=== PATIENT | female | born 1990 | race Caucasian/White ===

== ENCOUNTER 2018-07-01 17:28 | Emergency (ER) | payer BC ==
[~2018-07-01] VITALS: Ht 165.1 cm; Wt 65.8 kg
[2018-07-01 17:47] VITALS: BP_SYST 102
--- NOTE | 2018-07-01 19:34 | NUR ---
Patient to ER CHAIR for evaluation. Side rails up. Report given to THOM WATSON.
--- NOTE | 2018-07-01 20:04 | NUR ---
Pt AAOx4 presents to ED via wheelchair c/o 10/18 pain to L knee radiating to L hip x 2 days s/p "twisting knee" while attempting to get up from sitting on floor. Pt took ibuprofen with no relief. Skin pink dry and warm, breathing even and unlabored. NO other injuries/complaints per pt/noted. Will continue to monitor .
--- NOTE | 2018-07-01 20:06 | NUR ---
SEMAJ Ortiz at bedside examining patient.
--- NOTE | 2018-07-01 20:23 | NUR ---
Ice pack provided
[2018-07-01] MEDS ORDERED: HYDROcodone/ACETAMIN 5-325 MG TAB (NORCO/ VICODIN) PO ONE (20:45)
[2018-07-01 20:51] VITALS: BP_SYST 106
--- NOTE | 2018-07-01 20:51 | NUR ---
Patient given written and verbal discharge instructions and verbalizes understanding. ER MD Ortiz discussed with patient the results and treatment provided. Patient in stable condition. ID arm band removed. Rx of Ibuprofen, [place] given. Patient educated on pain management and to follow up with PMD. Pain Scale 0. Opportunity for questions provided and answered. Medication side effect fact sheet provided.
== END 2018-07-01 20:51 | disposition home or self-care (01) ==
LOC: SED 17:28
DX: S89.92XA Unspecified injury of left lower leg, initial encounter (principal); Z88.0 Allergy status to penicillin; X58.XXXA Exposure to other specified factors, initial encounter; Y93.89 Activity, other specified; Y92.89 Other specified places as the place of occurrence of the external cause; Y99.8 Other external cause status
CPT/HCPCS: 73564; 99283

== ENCOUNTER 2019-02-07 10:12 | Emergency (ER) | payer BC ==
[~2019-02-07] VITALS: Ht 165.1 cm; Wt 65.8 kg
[2019-02-07 10:12] VITALS: BP_SYST 117
--- NOTE | 2019-02-07 10:12 | NUR ---
BROUGHT BACK TO BED #2 AND TRIAGED. REPORT GIVEN TO [facility]
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
--- NOTE | 2019-02-07 10:53 | NUR ---
ER at bedside examining patient.
[2019-02-07] MEDS ORDERED: KETOROLAC TROMETHAMINE 30 MG VIAL IM ONE (11:00)
--- NOTE | 2019-02-07 12:08 | NUR ---
Patient given written and verbal discharge instructions and verbalizes understanding. ER MD discussed with patient the results and treatment provided. Patient in stable condition. ID arm band removed. Rx of Tramadol, Robaxin and Motrin given. Patient educated on pain management and to follow up with PMD. Pain Scale 7/10. Opportunity for questions provided and answered. Medication side effect fact sheet provided.
[2019-02-07 12:12] VITALS: BP_SYST 108
== END 2019-02-07 12:08 | disposition home or self-care (01) ==
LOC: SED 10:12
DX: S16.1XXA Strain of muscle, fascia and tendon at neck level, initial encounter (principal); S20.211A Contusion of right front wall of thorax, initial encounter; S00.33XA Contusion of nose, initial encounter; V43.52XA Car driver injured in collision with other type car in traffic accident, initial encounter; Z88.0 Allergy status to penicillin; Y93.89 Activity, other specified; Y92.488 Other paved roadways as the place of occurrence of the external cause; Y99.8 Other external cause status
CPT/HCPCS: 70160; 71045; 71100; 72040; 81025; 96372; 99283; J1885